=== PATIENT | female | born 1965 | race Caucasian/White ===

== ENCOUNTER 2017-07-03 08:59 | Emergency (ER) | payer OTHER ==
[2017-07-03 09:16] VITALS: BP 139/68
--- NOTE | 2017-07-03 10:02 | UC ---
Throat Pain/Nasal Иван HPI - HPI Summary HPI Summary: 51 Y/O female presents for C/O upper respiratory congestion x 1 week. Seen earlier this week by PMD and DX with viral illness. presents today with increased sinus pain, congestion, headache and fever. Denies throat pain, dyspnea, body aches, nausea or vomiting. Has been taking OTC decongestant at home and ibuprofen. Medical history and medications reviewed at this visit. Significant medical history of hypothyroidism. Blood pressure elevated at this visit without history of hypertension, most likely due to current illness. - History of Current Complaint Chief Complaint: UCGeneralIllness Stated Complaint: URI Time Seen by Provider: 07/03/17 09:51 Hx Obtained From: Patient Hx Last Menstrual Period: 11/02/13 ?: No Onset/Duration: Gradual Onset Severity: Moderate Pain Intensity: 4 Pain Scale Used: 0-10 Numeric Cough: None Associated Signs & Symptoms: Positive: Sinus Discomfort - Allergies/Home Medications Allergies/Adverse Reactions: Allergies Allergy/AdvReac Type Severity Reaction Status Date / Time No Known Allergies Allergy Verified 07/03/17 09:16 PMH/Surg Hx/FS Hx/Imm Hx Previously Healthy: Yes Endocrine History: Thyroid Disease - Surgical History Surgical History: Yes Surgery Procedure, Year, and Place: TONSILLECTOMY-S. Gallbladder - Social History Alcohol Use: None Substance Use Type: None Smoking Status (MU): Never Smoked Tobacco Review of Systems Constitutional: Fever Skin: Negative Eyes: Negative ENT: Sinus Congestion, Sinus Pain/Tenderness Respiratory: Negative Cardiovascular: Negative Gastrointestinal: Negative Genitourinary: Negative Motor: Negative Neurovascular: Negative Musculoskeletal: Negative Neurological: Negative Psychological: Negative Is Patient Immunocompromised?: No All Other Systems Reviewed And Are Negative: Yes Physical Exam Triage Information Reviewed: Yes Appearance: Well-Appearing Vital Signs: Initial Vital Signs Temp 102.2 F 07/03/17 09:13 Pulse 103 07/03/17 09:13 Resp 16 07/03/17 09:13 BP 139/68 07/03/17 09:13 Pulse Ox 98 07/03/17 09:13 Vital Signs Reviewed: Yes Eye Exam: Normal ENT: Positive: Nasal congestion, TM dull - L side Neck exam: Normal Neck: Positive: No Lymphadenopathy Respiratory Exam: Normal Respiratory: Positive: Lungs clear, Normal breath sounds Cardiovascular Exam: Normal Cardiovascular: Positive: RRR Musculoskeletal Exam: Normal Neurological Exam: Normal Psychological Exam: Normal Skin Exam: Normal Throat Pain/Nasal Course/Dx - Differential Dx/Diagnosis Differential Diagnosis/HQI/PQRI: Otitis Media, Sinusitis, URI Provider Diagnoses: Sinusitis Discharge - Discharge Plan Condition: Stable Disposition: HOME Patient Education Materials: Sinusitis (ED) Referrals: Flip Keen MD [Primary Care Provider] - Additional Instructions: Take antibiotics as directed. Increase fluids and get plenty of rest. Please follow up with primary medical provider or return to walk in if symptoms do not improve or worsen over the next three to four days.
== END 2017-07-03 10:24 | disposition home or self-care (01) ==
LOC: UCEAST 08:59
DX: J32.9 Chronic sinusitis, unspecified (principal)
CPT/HCPCS: 99212; G0463

== ENCOUNTER 2019-02-17 08:31 | Emergency (ER) | payer OTHER ==
[2019-02-17 08:42] VITALS: BP 168/101
--- NOTE | 2019-02-17 08:52 | UC ---
Skin Complaint HPI - HPI Summary HPI Summary: 53-year-old woman comes in with a chief complaint of rash. Cerebellar week ago at the left forearm she had small vesicles on her forearm that itches. She it' s them and there has been spread onto her abdomen. She's tried several over-the -counter topicals which have not helped. Also tried Claritin which also did not help. No fevers or chills feels well otherwise. - History of Current Complaint Chief Complaint: UCRash Time Seen by Provider: 02/17/19 08:45 Stated Complaint: RASH Hx Last Menstrual Period: 11/02/13 Pain Intensity: 6 - Allergy/Home Medications Allergies/Adverse Reactions: Allergies Allergy/AdvReac Type Severity Reaction Status Date / Time No Known Allergies Allergy Verified 02/17/19 08:42 Home Medications: Home Medications Ascorbic Acid [Vitamin C] 1 tab PO DAILY 02/17/19 [History Confirmed 02/17/19] Hydrocortisone 0.5% CM(NF) [Hydrocortisone 0.5% CREAM(NF)] 1 applic TOPICAL ONCE PRN 02/17/19 [History Confirmed 02/17/19] Loratadine 1 tab PO DAILY 02/17/19 [History Confirmed 02/17/19] Zinc Gluconate [Zinc] 1 tab PO DAILY 02/17/19 [History Confirmed 02/17/19] PMH/Surg Hx/FS Hx/Imm Hx Previously Healthy: Yes Endocrine History: Hypothyroidism - Surgical History Surgical History: Yes Surgery Procedure, Year, and Place: TONSILLECTOMY-. Gallbladder - Family History Known Family History: Positive: Non-Contributory - Social History Alcohol Use: Weekly Substance Use Type: None Smoking Status (MU): Never Smoked Tobacco Review of Systems All Other Systems Reviewed And Are Negative: Yes Constitutional: Positive: Negative Skin: Positive: Other - see hpi Eyes: Positive: Negative ENT: Positive: Negative Respiratory: Positive: Negative Cardiovascular: Positive: Negative Gastrointestinal: Positive: Negative Motor: Positive: Negative Neurovascular: Positive: Negative Musculoskeletal: Positive: Negative Neurological: Positive: Negative Psychological: Positive: Negative Is Patient Immunocompromised?: No Physical Exam Triage Information Reviewed: Yes Appearance: Well-Appearing, No Pain Distress, Well-Nourished Vital Signs: Initial Vital Signs Temp 98.7 F 02/17/19 08:36 Pulse 73 02/17/19 08:36 Resp 18 02/17/19 08:36 BP 168/101 02/17/19 08:36 Pulse Ox 100 02/17/19 08:36 Vital Signs Reviewed: Yes Eye Exam: Normal Eyes: Positive: Conjunctiva Clear Neck: Positive: Supple Respiratory: Positive: No respiratory distress Musculoskeletal: Positive: Strength Intact, ROM Intact Neurological: Positive: Alert Psychological: Positive: Age Appropriate Behavior Skin: Positive: Other - The rash is slightly raised patches with some crusting in the center of an erythematous patch. These areas are located in the left forearm and on the abdomen. Sizes are anywhere from 3 cm to 6 cm. No streaking. Not in a dermatomal distribution. Course/Dx - Diagnoses Provider Diagnosis: Poison jannet dermatitis Discharge - Sign-Out/Discharge Documenting (check all that apply): Patient Departure All imaging exams completed and their final reports reviewed: No Studies - Discharge Plan Condition: Stable Disposition: HOME Prescriptions: methylPREDNISolone [Medrol Dosepak 4 MG*] 0 mg PO .SEE SHAYLEE INSTRUCTION #1 tab Patient Education Materials: Poison Jannet (ED) Referrals: Flip Keen MD [Primary Care Provider] - Additional Instructions: FOLLOW UP WITH YOUR DOCTOR IF NOT COMPLETELY IMPROVED. GET RECHECKED SOONER IF YOUR CONDITION WORSENS OR ANY QUESTIONS OR CONCERNS. - Billing Disposition and Condition Condition: STABLE Disposition: Home
== END 2019-02-17 09:01 | disposition home or self-care (01) ==
LOC: UCEAST 08:31
DX: L23.7 Allergic contact dermatitis due to plants, except food (principal); E03.9 Hypothyroidism, unspecified
CPT/HCPCS: 99212; G0463